=== PATIENT | female | born 1950 | race Caucasian/White ===

== ENCOUNTER 2017-10-11 17:07 | Emergency (ER) | payer MEDICARE ==
--- NOTE | 2017-10-11 17:21 | C.PDOC ---
History Of Present Illness <Elana Villanueva - Last Filed: 10/11/17 21:18> <Alisha Alarconnika - Last Filed: 10/15/17 13:11> 67 yo female w/PMHx of NIDDM, depression, HTN BIBA for evaluation of left shoulder pain, Right foot pain developed WH[employer] after sustained mechanical fall. Pt reports, "slipped on step and trying to catch myself, hit the door on left side with my shoulder.". At present time, pt reports, severe pain over Left shoulder/upper arm, unable to move left arm due to pain. Pt also c/o mild pain over Right ankle. Otherwise, pt denies head injury, LOC, syncope, headache, dizziness, neck pain, visual changes, focal deficits, N/V, CP, SOB, dyspnea, denies weakness, sensory or vascular deficits to B/L UEs and LEs. AT the time of evaluation,m lebron ears in pain. (Mirta Alarcon) <Elana Villanueva - Last Filed: 10/11/17 21:18> History Per: Patient, Family <Mirta Alarcon - Last Filed: 10/15/17 13:11> Time Seen by Provider: 10/11/17 17:10 Chief Complaint (Nursing): Upper Extremity Problem/Injury Past Medical History Reviewed: Historical Data, Nursing Documentation, Vital Signs - Medical History PMH: CAD, Depression, Diabetes, HTN Other PMH: Obese Family History: States: No Known Family Hx - Social History Hx Tobacco Use: No Hx Alcohol Use: No Hx Substance Use: No - Immunization History Hx Tetanus Toxoid Vaccination: No Hx Pneumococcal Vaccination: No <Mirta Alarcon - Last Filed: 10/15/17 13:11> Vital Signs: Last Vital Signs Temp 98.8 F 10/11/17 22:00 Pulse 96 H 10/11/17 23:22 Resp 18 10/11/17 23:22 BP 148/86 10/11/17 23:22 Pulse Ox 99 10/11/17 23:22 Review Of Systems Except As Marked, All Systems Reviewed And Found Negative. Constitutional: Negative for: Fever, Chills Eyes: Negative for: Vision Change ENT: Negative for: Ear Discharge, Nose Discharge, Throat Pain, Throat Swelling Cardiovascular: Negative for: Chest Pain, Palpitations, Edema, Light Headedness Respiratory: Negative for: Cough, Shortness of Breath, Wheezing Gastrointestinal: Negative for: Nausea, Vomiting, Abdominal Pain, Diarrhea Genitourinary: Negative for: Dysuria, Incontinence Musculoskeletal: Positive for: Shoulder Pain, Foot Pain. Negative for: Neck Pain, Back Pain Skin: Negative for: Lesions, Bruising Neurological: Negative for: Weakness, Numbness, Altered Mental Status, Headache , Dizziness <Mirta Alarcon - Last Filed: 10/15/17 13:11> Physical Exam - Physical Exam Appears: Well, Non-toxic, No Acute Distress Skin: Normal Color, Warm, No Rash, No Ecchymosis Head: Atraumatic, Normacephalic Eye(s): bilateral: PERRL Throat: No Drooling Neck: Normal ROM, Trachea Midline, No Midline Cervical Tenderness, No Paracervical Tenderness, No Step Off Deformity, Supple Chest: Symmetrical, No Deformity, No Tenderness Cardiovascular: Rhythm Regular, No Murmur, No JVD Respiratory: No Decreased Breath Sounds, No Accessory Muscle Use, No Stridor, No Wheezing Gastrointestinal/Abdominal: Soft, No Tenderness, No Distention, No Guarding Back: No Vertebral Tenderness, No Paraspinal Tenderness Extremity: No Normal ROM (decrease FAROM of Left shoulder due to severe pain over left humerus, no neurovascular deficist distally), Tenderness (severe tendernes over proximal humerus ), Capillary Refill (less than2 sec to Left hand ), Deformity (palpable deformity over proximal humerus, no skin changes.) Neurological/Psych: Oriented x3, Normal Speech, Normal Motor, Normal Sensation, Normal Reflexes <Mirta Alarcon - Last Filed: 10/15/17 13:11> ED Course And Treatment - Laboratory Results Result Diagrams: 10/11/17 18:16 10/11/17 18:16 <Elana Villanueva - Last Filed: 10/11/17 21:18> - Laboratory Results Result Diagrams: 10/11/17 18:16 10/11/17 18:16 Lab Interpretation: No Acute Changes O2 Sat by Pulse Oximetry: 98 Pulse Ox Interpretation: Normal - CT Scan/US CT upper ext Other Rad Studies (CT/US): Radiology Report Reviewed CT/US Interpretation: EXAM: CT Left Upper Extremity Without Intravenous Contrast, Humerus. CLINICAL HISTORY: 67 years old, female; Injury or trauma; Fall; Initial encounter; Fracture, traumatic injury; Open. fracture, severity classification not provided; Humerus; Left; Shaft of humerus; Injury date: ;. Additional info: Shoulder, humerus. TECHNIQUE: Axial computed tomography images of the left humerus without intravenous contrast. All CT scans. at this facility use one or more dose reduction techniques, viz.: automated exposure control; ma/kV. adjustment per patient size (including targeted exams where dose is matched to indication; i.e. head);. or iterative reconstruction technique. Coronal and sagittal reformatted images were created and reviewed. COMPARISON: No relevant prior studies available. FINDINGS: Bones/joints: Normal bone mineralization. Joint space narrowing and osteophyte formation. involving the left glenohumeral and acromioclavicular joints. There is mild involvement of the. acromioclavicular joint and moderate to severe involvement of the glenohumeral joint. Comminuted. left humeral fracture extending from the proximal diaphysis to the surgical neck. Mild impaction. Anterior and posterior displacement of the fracture fragments with separation of 2.5 cm. Fibers of the. deltoid muscle appear interposed between the fracture fragments. No dislocation. Soft tissues: Subcutaneous contusion or hematoma involving the subcutaneous tissues of the lateral. arm at the level of the proximal humeral diaphysis. Other findings: Normal appearance of the imaged left lung parenchyma. IMPRESSION: 1. Comminuted and slightly impacted fracture of the left proximal humerus extending from the. proximal diaphysis through the surgical neck of the left humerus. There is both anterior and posterior. displacement of the fracture fragments with separation of 2.5 cm and intervening fibers of the deltoid. muscle within this gap. RECOMMEND orthopedic consultation. 2. Mild acromioclavicular and moderate to severe glenohumeral joint osteoarthrosis. Thank you for allowing us to participate in the care of your patient. Dictated and Authenticated by: Anderson Kaplan DO. 8:50 PM Eastern Time ([place] & [place]) Progress Note: After imaging review, results review and discussed with Orthopedist per family request. Imagings review by and coaptation splint recommend with discharge and outpt f/u. At 18:30, attempt to place splint, patient in severe pain, unable to move arm for splint application. Re-discussed with attending, will do under concussion sedation. At 23:10, CS performed by . case discussed again with , CT of left shoulder/humerus review, discharge recommend when appropriate after CS with outpt f/u. On re-eval, pt remained tsbale during the ED evaluation. After splint applied, Left hand: no neurovascular deficits. results review and discussed with pt and family. Patinet and family advised on fracture complications. Advised to F/U with in 1 day without fail for re- evaluation. return to ED at any time if any worsening or new changes. <Mirta Alarcon - Last Filed: 10/15/17 13:11> Supervising Attending Note - Supervising Attending Note The Documented history was done by the: Physician Bark Scaler The documented physical exam was done by the: Physician Bark Scaler The documented procedures were done by the: Physician Bark Scaler - Attestation: I have personally seen and examined this patient.: Yes I have fully participated in the care of the patient.: Yes I have reviewed all pertinent clinical information, including history, physical exam and plan: Yes <Elana Villanueva - Last Filed: 10/11/17 21:18> <Mirta Alarcon - Last Filed: 10/15/17 13:11> - Notes: Notes:: SP TRIP AND FALL, CONTUSION L ARM. CO PERSIST PAIN TO AREA WORSE W MOVEMENT. XRAY +L FRACTURE HUMERUS. EXAM ABOVE. S/P D/W DR BELL: SPLINT, DC FU OFFICE. PT W LOW PAIN TOLERANCE REQUIRING CONSCIOUS SEDATION FOR SPLINT APPLICATION. NPO SINCE 1400. (Elana Villanueva) Orthopedic <Elana Villanueva - Last Filed: 10/11/17 21:18> Time Performed: 22:01 Time Out: Side verified, Site verified, Patient ID confirmed Procedure: Splint Location: Left Consent obtained: Written Performed by: Attending Physician Diagnosis: Fracture Type: Closed Location: Left, Proximal Bone: Humerus <Mirta Alarcon - Last Filed: 10/15/17 13:11> Other:: coaptation (Mirta Alarcon) Disposition <Elana Villanueva - Last Filed: 10/11/17 21:18> Counseled Patient/Family Regarding: Studies Performed, Diagnosis, Need For Followup, Rx Given - Disposition Disposition Time: 22:23 <Mirta Alarcon - Last Filed: 10/15/17 13:11> - Disposition Referrals: Sandra Bell MD [Staff Provider] - Disposition: HOME/ ROUTINE Condition: STABLE Additional Instructions: OBSERVE FOR ANY SIGN OF COMPARTMENT SYNDROME: INCREASE PAIN, NUMBNESS, TINGLING OVER FINGER, BLUISH DISCOLORATION-RETURN TO ED IMMEDIATELY FOR RE-EVALUATION. TAKE PAIN MEDICATION NEED FOR PAIN FOLLOW UP WITH IN 1 DAY FOR RE-EVALUATION WITHOUT FAIL Prescriptions: oxyCODONE/Acetaminophen [Percocet 5/325 mg Tab] 1 tab PO TID #10 tab Instructions: Cast Care, Upper Arm Fracture, Moderate Sedation in Adults (DC) Forms: [facility] (Montenegrin) - Clinical Impression Clinical Impression: Humeral fracture ED Procedural Sedation - Pre Anesthesia Assessment Past Medical History: Medications Reviewed, Allergies Reviewed, Record Review Family History/Social History: Reviewed - Physical Exam/Review of Systems Vital Signs Reviewed: Yes Cardiovascular: Regular Rate and Rhythm, Normal S1, S2, Peripheal Pulses Present Respiratory/Chest: Clear to Auscultation, Good Air Exchange. denies: Respiratory Distress, Accessory Muscle Use, Wheezes Neurological: GCS=15, CN II-XII Intact, Speech Normal, Motor Func Grossly Intact , Normal Sensory Function Mental Status: Alert and Oriented X 3 - Pre-Procedure Airway Assessment History of difficult intubation or surgical airway (i.e trach):: No Inability to extend neck:: No Diagnosis of sleep apnea:: No Less than three finger breadth to hyoid bone:: Yes ASA Criteria: 1 - Healthy, normal. 2 - Mild systemic disease (No functional limitations, mildline obesity, DM withot complications, Hypertention). 3 - Severe systemic disease (Some functional limitation, stable angina, morbid obesity, controlled COPD/Asthma/CHF). 4 - Sever systemic disease constant threat to life (Unstable angina, active symptoms of COPD/Asthma, CHF/ Hypertension. 5 - Moribund ASA Clarification: ASA III Mallampati (airway): Class III <Elana Villanueva - Last Filed: 10/11/17 21:18> <Mirta Alarcon - Last Filed: 10/15/17 13:11> - Pre Anesthesia Assessment Chief Complaint: Upper Extremity Problem/Injury - Intra-Procedure (Medications) Medications Given: Discontinued Medications Albuterol/Ipratropium (Duoneb 3 Mg/0.5 Mg (3 Ml) Ud) 3 ml IH STAT STA Stop: 10/11/17 21:22 Ketamine HCl (Ketalar) 100 mg IV ONCE ONE Stop: 10/11/17 21:01 Lorazepam (Ativan) 1 mg IVP ONCE ONE Stop: 10/11/17 21:01 Morphine Sulfate (Morphine) 2 mg IM STAT STA Stop: 10/11/17 17:18 Last Admin: 10/11/17 17:30 Dose: 2 mg MAR Pain Assessment Document 10/11/17 17:30 LC (Rec: 10/11/17 17:31 LC [id number]) Pain Reassessment Is this a pain reassessment? No Sleep Is patient sleeping during reassessment? No Presence of Pain Presence of Pain Yes Pain Scale Used Pain Scale Used Numeric Description Description Constant Intensity of Pain at present 10 Acceptable Level of Pain 4 Pain Behavior Moaning Guarding IM Administration Charges Document 10/11/17 17:30 LC (Rec: 10/11/17 17:31 LC [id number]) Charges for Administration # of IM Administrations 1 Re-Assess: MAR Pain Assessment Document 10/11/17 18:00 EH (Rec: 10/11/17 21:25 EH [id number]) Pain Reassessment Is this a pain reassessment? No Morphine Sulfate (Morphine) 2 mg IVP STAT STA Stop: 10/11/17 18:28 Last Admin: 10/11/17 18:48 Dose: 2 mg MAR Pain Assessment Document 10/11/17 18:48 LC (Rec: 10/11/17 18:49 LC [id number]) Pain Reassessment Is this a pain reassessment? Yes Sleep Is patient sleeping during reassessment? No Presence of Pain Presence of Pain Yes Pain Scale Used Pain Scale Used Numeric Location Left, Right or Bilateral Left Pain Location Body Site Arm Description Description Constant Intensity of Pain at present 9 Acceptable Level of Pain 4 IVP Administration Document 10/11/17 18:48 LC (Rec: 10/11/17 18:49 LC [id number]) Charges for Administration # of IVP Administrations 1 Re-Assess: MAR Pain Assessment Document 10/11/17 19:18 (Rec: 10/11/17 21:25 [id number] Pain Reassessment Is this a pain reassessment? No Morphine Sulfate (Morphine) 2 mg IVP STAT STA Stop: 10/11/17 22:49 Last Admin: 10/11/17 22:48 Dose: 2 mg MAR Pain Assessment Document 10/11/17 22:48 (Rec: 10/11/17 22:50 [id number][facility] Pain Reassessment Is this a pain reassessment? Yes Sleep Is patient sleeping during reassessment? No Presence of Pain Presence of Pain Yes Location Left, Right or Bilateral Left Pain Location Body Site Shoulder IVP Administration Document 10/11/17 22:48 (Rec: 10/11/17 22:50 [id number]) Charges for Administration # of IVP Administrations 1 Ondansetron HCl (Zofran Inj) 4 mg IVP ONCE ONE Stop: 10/11/17 21:31 Last Admin: 10/11/17 21:39 Dose: 4 mg IVP Administration Document 10/11/17 21:39 (Rec: 10/11/17 22:42 [id number][facility] Charges for Administration # of IVP Administrations 1 Proc Sedation POST-PROCEDURE - Discharge Checklist Written MD order for Discharge: Yes Vital signs assessed and are consistent with pre-procedure reading: Yes Minimal nausea, vomiting, and dizziness: Yes Ambulates to pre-procedural level: Yes Alert and oriented to pre-procedural level: Yes Responsible adult escort present: Yes DISCHARGE INSTRUCTIONS GIVEN:: Yes <Elana Villanueva - Last Filed: 10/11/17 21:18> - Medications Medications Given: Discontinued Medications Albuterol/Ipratropium (Duoneb 3 Mg/0.5 Mg (3 Ml) Ud) 3 ml IH STAT STA Stop: 10/11/17 21:22 Ketamine HCl (Ketalar) 100 mg IV ONCE ONE Stop: 10/11/17 21:01 Lorazepam (Ativan) 1 mg IVP ONCE ONE Stop: 10/11/17 21:01 Morphine Sulfate (Morphine) 2 mg IM STAT STA Stop: 10/11/17 17:18 Last Admin: 10/11/17 17:30 Dose: 2 mg MAR Pain Assessment Document 10/11/17 17:30 LC (Rec: 10/11/17 17:31 LC [id number]) Pain Reassessment Is this a pain reassessment? No Sleep Is patient sleeping during reassessment? No Presence of Pain Presence of Pain Yes Pain Scale Used Pain Scale Used Numeric Description Description Constant Intensity of Pain at present 10 Acceptable Level of Pain 4 Pain Behavior Moaning Guarding IM Administration Charges Document 10/11/17 17:30 LC (Rec: 10/11/17 17:31 LC [id number]) Charges for Administration # of IM Administrations 1 Re-Assess: [facility] Pain Assessment Document 10/11/17 18:00 EH (Rec: 10/11/17 21:25 EH [id number]) Pain Reassessment Is this a pain reassessment? No Morphine Sulfate (Morphine) 2 mg IVP STAT STA Stop: 10/11/17 18:28 Last Admin: 10/11/17 18:48 Dose: 2 mg MAR Pain Assessment Document 10/11/17 18:48 LC (Rec: 10/11/17 18:49 LC [id number]) Pain Reassessment Is this a pain reassessment? Yes Sleep Is patient sleeping during reassessment? No Presence of Pain Presence of Pain Yes Pain Scale Used Pain Scale Used Numeric Location Left, Right or Bilateral Left Pain Location Body Site Arm Description Description Constant Intensity of Pain at present 9 Acceptable Level of Pain 4 IVP Administration Document 10/11/17 18:48 LC (Rec: 10/11/17 18:49 LC [id number]) Charges for Administration # of IVP Administrations 1 Re-Assess: [facility] Pain Assessment Document 10/11/17 19:18 EH (Rec: 10/11/17 21:25 EH [id number]) Pain Reassessment Is this a pain reassessment? No Morphine Sulfate (Morphine) 2 mg IVP STAT STA Stop: 10/11/17 22:49 Last Admin: 10/11/17 22:48 Dose: 2 mg MAR Pain Assessment Document 10/11/17 22:48 EH (Rec: 10/11/17 22:50 EH [id number]) Pain Reassessment Is this a pain reassessment? Yes Sleep Is patient sleeping during reassessment? No Presence of Pain Presence of Pain Yes Location Left, Right or Bilateral Left Pain Location Body Site Shoulder IVP Administration Document 10/11/17 22:48 (Rec: 10/11/17 22:50 [id number]) Charges for Administration # of IVP Administrations 1 Ondansetron HCl (Zofran Inj) 4 mg IVP ONCE ONE Stop: 10/11/17 21:31 Last Admin: 10/11/17 21:39 Dose: 4 mg IVP Administration Document 10/11/17 21:39 (Rec: 10/11/17 22:42 [id number]) Charges for Administration # of IVP Administrations 1
--- NOTE | 2017-10-11 18:04 | RAD ---
PROCEDURE: Right Ankle Radiographs. HISTORY: Unspecified right ankle right foot injury COMPARISON: None FINDINGS: BONES: Plantar and Achilles Tendon insertion calcaneal spurs. JOINTS: Normal. No osteoarthritis. Ankle mortise maintained. Talar dome intact SOFT TISSUES: Lateral soft tissue swelling without distal fibular abnormality. OTHER FINDINGS: None. IMPRESSION: Soft tissue swelling without acute articular or osseous abnormality.
--- NOTE | 2017-10-11 18:05 | RAD ---
PROCEDURE: Right Foot Radiographs. HISTORY: injury COMPARISON: None. FINDINGS: BONES: Normal. No fracture. JOINTS: Multiple hammertoe deformities, mild SOFT TISSUES: Normal. OTHER FINDINGS: None. IMPRESSION: No acute findings related to/accounting for the clinical presentation.
--- NOTE | 2017-10-11 18:05 | RAD ---
PROCEDURE: Radiographs of the Left Shoulder HISTORY: injury COMPARISON: No prior. FINDINGS: BONES: Obliques fracture through the proximal left humerus. The major fracture fragments are distracted. JOINTS: Preserved glenohumeral relationship. SOFT TISSUES: Soft tissue swelling attests to the acuity of the fracture. OTHER FINDINGS: None. IMPRESSION: Comminuted fracture proximal left humerus.
--- NOTE | 2017-10-11 18:06 | RAD ---
PROCEDURE: Radiographs of the left humerus. HISTORY: injury COMPARISON: None. FINDINGS: BONES: Oblique and comminuted fracture proximal left humerus. Major fracture fragments are both angulated and distracted. No distal abnormalities identified. SOFT TISSUES: Soft tissue swelling attests to the acuity of the fracture. OTHER FINDINGS: None. IMPRESSION: Acute and comminuted fracture proximal left humerus.
[2017-10-11 18:20] LABS: BASO # 0.1 K/uL (0.0-0.2); BASO % 0.6 % (0.0-2.0); EOS # 0.1 K/uL (0.0-0.7); EOS % 1.1 % (0.0-4.0); HEMOGLOBIN 12.6 g/dL (11.0-16.0); LYMPH # 3.5 K/uL (1.0-4.3); LYMPH % 33.1 % (20.0-40.0); MEAN CELL VOLUME 82.9 fL (81.0-99.0); MEAN CORPUSCULAR HEMOGLOBIN 27.5 pg (27.0-31.0); MEAN CORPUSCULAR HGB CONC 33.1 g/dL (33.0-37.0); MONO % 9.7 % (0.0-10.0); NEUT # 5.8 K/uL (1.8-7.0); NEUT % 55.5 % (50.0-75.0); RBC 4.6 Mil/uL (3.80-5.20); RED CELL DISTRIBUTION WIDTH 14.9 % (11.5-14.5); WHITE BLOOD COUNT 10.4 K/uL (4.8-10.8)
[2017-10-11 18:33] LABS: BLOOD UREA NITROGEN 14 mg/dL (7-17); CALCIUM 9.2 mg/dl (8.6-10.4); GFR AFRICAN-AMERICAN > 60; GFR NON-AFRICAN AMERICAN > 60
[2017-10-11 18:38] LABS: PROTHROMBIN TIME 10.9 SECONDS (9.7-12.2)
[2017-10-11 20:55] LABS: SQUAMOUS EPITHIAL 7 /hpf (0-5); URINE BILIRUBIN NEGATIVE (NEGATIVE); URINE BLOOD NEGATIVE (NEGATIVE); URINE CLARITY Clear (Clear); URINE COLOR Yellow (YELLOW); URINE GLUCOSE (UA) NORMAL (Normal); URINE LEUKOCYTE ESTERASE TRACE Leu/uL (Negative); URINE PROTEIN NEGATIVE (NEGATIVE); URINE UROBILINOGEN NORMAL mg/dL (0.2-1.0)
[2017-10-11] MEDS ORDERED: Ketamine 50 mg/ml Inj (10 ml) IV ONE (21:00)
[2017-10-11] MEDS ORDERED: Albuterol-Ipratrop 3 mg / 0.5 (3 ml) UD ONE (21:20)
[2017-10-11] MEDS ORDERED: Albuterol-Ipratrop 3 mg / 0.5 (3 ml) UD IH STA (21:21)
[2017-10-11] MEDS ORDERED: Ketamine HCL 100 mg/ml INJ ONE (21:26)
[2017-10-11 22:37] VITALS: TEMP 98.8
[2017-10-11 23:04] VITALS: RESP 18
[2017-10-11 23:23] VITALS: BP 148/86; PULSE 96
--- NOTE | 2017-10-12 09:07 | CT ---
PROCEDURE: CT left shoulder HISTORY: shoulder, humerus COMPARISON: Not available TECHNIQUE: 2.5 mm contiguous axial sections were acquired through the left shoulder. Sagittal and coronal images were reformatted from the axial scan. Total exam DLP: [phone] exam was performed using 1 or more of the following dose reduction techniques: Automated exposure control, adjustment of the mA and/or kV according to patient size, and/or use of iterative reconstruction technique. FINDINGS: There is a comminuted spiral fracture of the proximal left humeral diaphysis extending to the humeral neck. There is mild displacement. There is no overriding. There is no significant angulation of the fracture fragments. The glenohumeral articulation is intact. There is glenohumeral osteoarthritis with a large osteophyte arising from the humeral head. The acromioclavicular articulation is intact. There is no soft tissue abnormality identified. IMPRESSION: Comminuted, mildly displaced spiral fracture of the proximal left humeral diaphysis extending to the humeral neck. Glenohumeral osteoarthritis. Preliminary interpretation of this examination was reported by [facility] at 8:50 p.m. on 10/11/2017. There is concurrence of this report with the preliminary interpretation.
[2017-10-15 13:11] VITALS: O2SAT 98
== END 2017-10-11 23:45 | disposition home or self-care (01) ==
LOC: C.ER 17:07
DX: S42.202A Unspecified fracture of upper end of left humerus, initial encounter for closed fracture (principal); W01.0XXA Fall on same level from slipping, tripping and stumbling without subsequent striking against object, initial encounter; E11.9 Type 2 diabetes mellitus without complications; I10 Essential (primary) hypertension; I25.10 Atherosclerotic heart disease of native coronary artery without angina pectoris
CPT/HCPCS: 29105; 73030; 73060; 73200; 73610; 73630; 80048; 81001; 85025; 85610; 85730; 86850; 86900; 96372; 96374; 96375; 96376; 99285; J2270; J2405